=== PATIENT | female | born 1950 ===

== ENCOUNTER 2018-07-30 21:55 | Outpatient (REF) | payer MEDICARE, OTHER, SELFPAY ==
[2018-07-30 22:10] LABS: Abs Immature Grans 0.02 k/cumm (0.0-0.09); Absolute Basophil Count 0.06 k/cumm (0.0-0.2); Absolute Eosinophil Count 0.22 k/cumm (0.0-0.7); Absolute Lymphocyte Count 2.63 k/cumm (1.2-3.4); Absolute Monocyte Count 0.43 k/cumm (0.11-0.7); Absolute Neutrophil Count 3.33 k/cumm (1.2-6.7); Basophils % 0.9; Eosinophils % 3.3; HCT 40.3 % (36.0-46.0); Immature Grans % 0.3; Lymphocytes % 39.3; Mean Corp. HGB Concentration 34.7 g/dL (32.0-36.0); Mean Corpuscular Hemoglobin 32.3 pg (27.0-33.0); Mean Corpuscular Volume 93.1 fL (80-95); Mean Platelet Volume 9.7 fL (8.0-11.0); Monocytes % 6.4; Neutrophils % 49.8; Platelet Count 307 x1000/uL (130-400); RBC 4.33 m/cumm (4.00-5.20); RBC Distribution Width 13.6 % (11.7-14.6); White Blood Cell Count 6.69 k/cumm (4.4-10.8)
[2018-07-30 22:44] LABS: ALT 19 U/L (12-78); AST 13 U/L (15-37); Albumin 3.8 g/dL (3.4-5.0); Alkaline Phosphatase 99 U/L (46-116); Anion Gap 9.6 mmol/L (3-11); BUN 19 mg/dL (7-18); Bilirubin, Total 0.4 mg/dL (0.2-1.0); CO2 27.4 mmol/L (21.0-32.0); CREATININE 0.94 mg/dL (0.55-1.02); Calcium 9.6 mg/dL (8.5-10.1); Chloride 104 mmol/L (98-107); Cholesterol 270 mg/dL (50-200); Folate 10.4 ng/mL (8.6-20.0); Glucose 95 mg/dL (70-100); HDL Cholesterol 64 mg/dL (40-60); LDL CHOLESTEROL 183 mg/dL (<100); Sodium 141 mmol/L (136-145); TSH (W/Ref FT4) 2.76 uIU/mL (0.358-3.74); Total Protein 7.3 g/dL (6.4-8.2); Triglyceride 132 mg/dL (30-150); Vitamin B12 369 pg/mL (193-986)
[2018-07-30 23:17] LABS: Hemoglobin A1C 5.2 % (4.5-6.2)
== END 2018-07-30 22:15 ==
LOC: NCHCN 21:55
PROVIDERS: PCP Family Medicine; Visit Provider Nurse Practitioner Family
DX: R73.9 Hyperglycemia, unspecified (principal); E78.5 Hyperlipidemia, unspecified; F33.41 Major depressive disorder, recurrent, in partial remission; E66.3 Overweight; I10 Essential (primary) hypertension
CPT/HCPCS: 80053; 80061; 83721; 82607; 82746; 83036; 84443; 85025

== ENCOUNTER 2019-05-09 13:05 | Outpatient (REF) | payer MEDICARE, SELFPAY ==
[2019-05-08 21:15] LABS: Abs Immature Grans 0.01 k/cumm (0.0-0.09); Absolute Basophil Count 0.03 k/cumm (0.0-0.2); Absolute Eosinophil Count 0.24 k/cumm (0.0-0.7); Absolute Lymphocyte Count 1.89 k/cumm (1.2-3.4); Absolute Monocyte Count 0.33 k/cumm (0.11-0.7); Absolute Neutrophil Count 2.43 k/cumm (1.2-6.7); Basophils % 0.6; Eosinophils % 4.9; HCT 43.1 % (36.0-46.0); HGB 14.6 g/dL (12.0-15.5); Immature Grans % 0.2; Lymphocytes % 38.3; Mean Corp. HGB Concentration 33.9 g/dL (32.0-36.0); Mean Corpuscular Volume 94.5 fL (80-95); Mean Platelet Volume 9.8 fL (8.0-11.0); Monocytes % 6.7; Neutrophils % 49.3; Platelet Count 300 x1000/uL (130-400); RBC 4.56 m/cumm (4.00-5.20); RBC Distribution Width 13.6 % (11.7-14.6); White Blood Cell Count 4.93 k/cumm (4.4-10.8)
[2019-05-08 21:41] LABS: ALT 20 U/L (12-78); AST 11 U/L (15-37); Albumin 3.9 g/dL (3.4-5.0); Alkaline Phosphatase 109 U/L (46-116); Anion Gap 9.4 mmol/L (3-11); BUN 14 mg/dL (7-18); Bilirubin, Total 0.3 mg/dL (0.2-1.0); CO2 28.6 mmol/L (21.0-32.0); CREATININE 0.85 mg/dL (0.55-1.02); Calcium 9.4 mg/dL (8.5-10.1); Chloride 106 mmol/L (98-107); Glucose 104 mg/dL (70-100); Potassium 4.1 mmol/L (3.5-5.1); Sodium 144 mmol/L (136-145); TSH (W/Ref FT4) 2.04 uIU/mL (0.36-3.74); Total Protein 7.5 g/dL (6.4-8.2)
[2019-05-08 21:53] LABS: ESR 21 mm/hr (0-30)
== END 2019-05-09 13:25 ==
LOC: NCHCN 13:05
PROVIDERS: PCP Family Medicine; Visit Provider Family Medicine
DX: I10 Essential (primary) hypertension (principal); G89.4 Chronic pain syndrome
CPT/HCPCS: 80053; 85652; 84443; 85025

== ENCOUNTER 2020-06-29 13:40 | Outpatient (REF) | payer MEDICARE, SELFPAY ==
[2020-07-01 23:42] LABS: SARS-CoV-2 RNA Undetected (Undetected); SARS-CoV-2 Specimen Source Nasopharynx
== END 2020-06-29 14:00 ==
LOC: NCHCN 13:40
PROVIDERS: PCP Family Medicine; Visit Provider Family Medicine
DX: B34.9 Viral infection, unspecified (principal)
CPT/HCPCS: U0003

== ENCOUNTER 2020-08-26 12:56 | Outpatient (REF) | payer MEDICARE, SELFPAY ==
[2020-08-29 02:04] LABS: SARS-CoV-2 RNA Undetected (Undetected); SARS-CoV-2 Specimen Source Nasal
== END 2020-08-26 13:16 ==
LOC: NCHCN 12:56
PROVIDERS: PCP Family Medicine; Visit Provider Family Medicine
DX: Z11.59 Encounter for screening for other viral diseases (principal)
CPT/HCPCS: U0003

== ENCOUNTER 2022-07-18 20:00 | Outpatient (REF) | payer MEDICARE, SELFPAY ==
[2022-07-18 21:43] LABS: HCT 41.2 % (36.0-46.0); HGB 14.4 g/dL (11.2-15.7); MCH 32.1 pg (27.0-33.0); MCV 92 fL (80-95); MPV 9.6 fL (8.0-11.0); Platelet Count 313 10^3/uL (130-400); RBC 4.48 10^6/uL (3.93-5.22); RDW-SD 43.9 fL
[2022-07-18 21:52] LABS: Anion Gap 9.3 mmol/L (3-11); BUN 16 mg/dL (7-18); CO2 25.7 mmol/L (21.0-32.0); CREATININE 0.9 mg/dL (0.55-1.02); Calcium 9.5 mg/dL (8.5-10.1); Calculated LDL 190 mg/dL (<100); Chloride 105 mmol/L (98-107); Cholesterol 298 mg/dL (<200); Estimated GFR 68.35 (mL/min/1.73m2); Glucose 95 mg/dL (74-106); HDL Cholesterol 59 mg/dL (40-60); Potassium 3.9 mmol/L (3.5-5.1); Sodium 140 mmol/L (136-145); Triglyceride 246 mg/dL (<150)
== END 2022-07-18 20:01 | disposition home or self-care (01) ==
LOC: NCHCN 20:00
PROVIDERS: PCP Family Medicine; Visit Provider Family Medicine
DX: I10 Essential (primary) hypertension (principal); E78.5 Hyperlipidemia, unspecified
CPT/HCPCS: 80048; 80061; 85027

== ENCOUNTER 2024-05-13 19:39 | Outpatient (REF) | payer MEDICARE, SELFPAY ==
[2024-05-16 14:00] LABS: Lamotrigine 7.2 mcg/mL (3.0-15.0)
== END 2024-05-13 19:40 | disposition home or self-care (01) ==
LOC: NCHCN 19:39
PROVIDERS: PCP Family Medicine; Visit Provider Family Medicine
DX: F31.9 Bipolar disorder, unspecified (principal)
CPT/HCPCS: 80175

== ENCOUNTER 2025-02-05 14:42 | Outpatient (REF) | payer MEDICARE, SELFPAY ==
[2025-02-05 21:17] LABS: HCT 41.8 % (36.0-46.0); HGB 14.3 g/dL (11.2-15.7); MCH 32.2 pg (27.0-33.0); MCHC 34.2 % (32.0-36.0); MCV 94 fL (80-95); MPV 9.7 fL (8.0-11.0); Platelet Count 290 10^3/uL (130-400); RBC 4.44 10^6/uL (3.93-5.22); RDW 13.3 % (11.7-14.6); RDW-SD 46.5 fL; WBC 5.51 10^3/uL (4.4-10.8)
[2025-02-05 21:38] LABS: ALT 20 U/L (14-59); AST 17 U/L (15-37); Albumin 4.3 g/dL (3.4-5.0); Alkaline Phosphatase 93 U/L (46-116); Anion Gap 9.4 mmol/L (3-11); BUN 18 mg/dL (7-18); Bilirubin, Total 0.7 mg/dL (0.2-1.0); CO2 27.6 mmol/L (21.0-32.0); CREATININE 0.8 mg/dL (0.55-1.02); Calcium 9.6 mg/dL (8.5-10.1); Calculated LDL 205 mg/dL (<100); Chloride 104 mmol/L (98-107); Cholesterol 312 mg/dL (<200); Estimated GFR 77.75 (mL/min/1.73m2); Glucose 90 mg/dL (74-106); HDL Cholesterol 71 mg/dL (>or=50); Potassium 4.3 mmol/L (3.5-5.1); Sodium 141 mmol/L (136-145); TSH (W/Ref FT4) 1.59 uIU/mL (0.36-3.74); Total Protein 7.5 g/dL (6.4-8.2); Triglyceride 180 mg/dL (<150)
== END 2025-02-05 14:43 | disposition home or self-care (01) ==
LOC: NCHCN 14:42
PROVIDERS: PCP Family Medicine; Visit Provider Family Medicine
DX: E78.5 Hyperlipidemia, unspecified (principal)
CPT/HCPCS: 80053; 80061; 85027; 84443